=== PATIENT | male | born 1960 | race Caucasian/White ===

== ENCOUNTER 2018-12-15 10:08 | Outpatient (CLI) | payer BC ==
--- NOTE | 2018-12-15 10:32 | RAD ---
Lumbar spine: 3 views. Neutral flexion extension lateral views obtained. INDICATIONS: Low back pain. Comparison made lumbar films from [facility] to 09/12/2018. Severe degenerative changes. Loss of disc space at all levels. Anterior wedging with large bridging o steophytes. Facet hypertrophy. Evidence of central canal stenosis at multiple levels. Slight posterior listhesis at L3-4 does not appear to change with flexion and extension. IMPRESSION: Severe degenerative changes lumbar spine, stable from prior exam.
== END 2018-12-15 10:09 | disposition home or self-care (01) ==
LOC: TBSIIMAG 10:08
PROVIDERS: ATTEND Neurological Surgery
DX: M54.5 Low back pain (principal); M47.26 Other spondylosis with radiculopathy, lumbar region
CPT/HCPCS: 72100

== ENCOUNTER 2019-01-06 08:10 | Day surgery (SDC) | payer BC ==
[2019-01-05 14:24] VITALS: BMI 38.0
--- NOTE | 2019-01-06 01:28 | HP ---
This is Roz Alcantar PA-C dictating a report for Jourdan Curran MD. HISTORY OF PRESENT ILLNESS: This is a 58-year-old male, who reports to our office for evaluation of low back pain. He denies one side being worse than the other. He is having symptoms consistent with an L2 radiculopathy bilaterally and symptoms of neurogenic claudication. The patient states that he has had pain for years, however had previously seen in our office in 2010. At that time, he was not in a position of surgery yet. The patient denies physical therapy. He has had one injection with reasonable relief. This was many years ago. The patient takes Aleve for pain occasionally. The patient states that the longer he stands, he will need to lean forward just to relieve from pain. If he sits, the pain will get better. He gets numbness and tingling in both lower extremities at times. Most of his pain is located in the low back, hip and groin. REVIEW OF SYSTEMS: A 10-point review of systems has been completed and is negative other than stated in the above HPI. PAST MEDICAL HISTORY: Blood clots, hyperlipidemia, chronic pain, diabetes, hypertension, and kidney disease. PAST SURGICAL HISTORY: Carpal tunnel and cholecystectomy. FAMILY HISTORY: Father is , diagnosed with diabetes, hypertension, heart disease, and cancer. Mother is alive. SOCIAL HISTORY: The patient is a nonsmoker. Denies alcohol or other illicit drug use. He is sexually active. MEDICATIONS: 1. Lantus. 2. Metformin. 3. Glipizide. 4. Atorvastatin. 5. Losartan. 6. Hydrochlorothiazide. 7. Pantoprazole. 8. Berna. ALLERGIES: NO KNOWN DRUG ALLERGIES. PHYSICAL EXAMINATION: CONSTITUTION: Well-appearing, well nourished, alert. RESPIRATIONS: Normal work of breathing on room air. NEUROLOGIC: Awake and oriented x3. Speech is spontaneous and fluent. Normal fund of knowledge. Cranial nerves grossly intact. EXTREMITIES: Lower extremities 5/5 bilateral strength in hip flexion, knee flexion, knee extension, dorsiflexion, plantar flexion, EHL. No radiculopathy. Negative single leg raise bilaterally. Hip rotation normal bilaterally. Nontender to palpate lumbar spine. Deep tendon reflexes diminished bilaterally. Negative Babinski. No clonus. SENSORY: Decreased sensation in bilateral top of feet, diabetes, peripheral neuropathy. Gait and station, sit to stand is normal. Normal gait. IMAGING DATA: MRI lumbar spine degenerative disk disease. Multilevel herniated nucleus pulposus L1-L2 with severe stenosis. ASSESSMENT AND PLAN: Hip pain, lumbar degenerative disc, lumbar back pain, lumbar stenosis and neurogenic claudication. Dr. Curran has offered surgery and laminectomy. The patient states that he understands the risks of surgery and is willing to move forward. Job ID: [id number]
[2019-01-06 09:00] LABS: #Eosinphils 0.6 thou/uL (0.0-0.7); #Lymphocytes 2.2 thou/uL (1.20-3.40); #Monocytes 0.6 thou/uL (0.11-0.59); #Neutrophils 6.5 thou/uL (1.40-6.50); %Basophils 0.4 % (0.0-1.0); %Eosinophils 5.6 % (0.0-10.0); %Lymphocytes 22.4 % (21.0-51.0); %Monocytes 6.1 % (0.0-10.0); %Neutrophils 65.5 % (42.0-75.0); Hemoglobin 14.5 g/dL (14.0-18.0); Mean Corpuscular HGB CONC 33.3 g/dL (32.0-36.0); Mean Corpuscular Hemoglobin 29.7 pg (27.0-31.0); Mean Corpuscular Volume 89.3 fL (78.0-98.0); Platelet Count 214 thou/uL (130-400); RBC Distribution Width 11.3 % (11.5-14.5); Red Blood Cell (RBC) Count 4.86 mill/uL (4.70-6.10); White Blood Cell (WBC) Count 9.9 thou/uL (4.8-10.8)
[2019-01-06 09:09] LABS: PTT 25.2 SEC (22.9-36.1); Prothrombin Time 12.9 SEC (12.0-14.7)
[2019-01-06 09:31] LABS: Anion Gap 14 mmol/L (10-20); BUN (Urea Nitrogen) 14 mg/dL (8.4-25.7); Calc. Creatinine Clearance 145 mL/min (70-130); Calcium 9.8 mg/dL (7.8-10.44); Carbon Dioxide 24 mmol/L (22-29); Chloride 104 mmol/L (98-107); Estimated GFR-MDRD 77; Glucose 203 mg/dL (70-105); Sodium 138 mmol/L (136-145)
== END 2019-01-06 10:26 | disposition home or self-care (01) ==
LOC: SDC 08:10
PROVIDERS: ATTEND Neurological Surgery
DX: M48.062 Spinal stenosis, lumbar region with neurogenic claudication (principal); Z53.8 Procedure and treatment not carried out for other reasons
CPT/HCPCS: 80048; 85025; 85610; 85730; 93005; 93010; J0690

== ENCOUNTER 2019-01-07 06:34 | Day surgery (SDC) | payer BC ==
[2019-01-07] MEDS ORDERED: Bupivacaine HCl 0.5%/Epinephrine 1:200,000/PF 30 ml Vial ONE (07:46)
[2019-01-07] MEDS ORDERED: Thrombin 5000 UNITS/5 ML VIAL ONE (07:46)
[2019-01-07] MEDS ORDERED: Sodium Chloride 0.9% 10 ML ONE (07:46)
[2019-01-07] MEDS ORDERED: Fentanyl 100 MCG/2 ML VIAL ONE ×5 (07:57→11:19)
[2019-01-07] MEDS ORDERED: Insulin Regular 300 UNITS/3 ML VIAL ONE (08:57)
[2019-01-07] MEDS ORDERED: HYDROcodone/Acetaminophen 5/325 mg Tablet ONE (13:55)
[2019-01-07] MEDS ORDERED: Ketorolac Tromethamine 30 MG/ML VIAL ONE (14:27)
[2019-01-07] MEDS ORDERED: Metoclopramide HCl 10 MG/2 ML VIAL ONE (14:27)
[2019-01-07] MEDS ORDERED: Lidocaine 2% PF 5 ML VIAL ONE (14:27)
[2019-01-07] MEDS ORDERED: PROPOFOL 200 MG/20 ML VIAL ONE (14:27)
[2019-01-07] MEDS ORDERED: Glycopyrrolate 0.2 MG/ML 5 ML SYRINGE ONE (14:27)
[2019-01-07] MEDS ORDERED: Rocuronium Bromide 10 MG/ML (10ML VIAL) ONE (14:27)
[2019-01-07] MEDS ORDERED: Ondansetron PF 4 MG/2 ML Vial ONE (14:27)
[2019-01-07] MEDS ORDERED: ePHEDrine 50 MG/ML VIAL ONE (14:27)
[2019-01-07] MEDS ORDERED: PHENYLEPHRINE-NS 100 MCG/ML 10 ML SYRINGE ONE (14:27)
--- NOTE | 2019-01-07 14:52 | OP ---
DATE OF PROCEDURE: 01/07/2019 BUSINESS ANALYTICS SPECIALIST: Roz Alcantar PA-C. PREOPERATIVE INDICATION: Treat pain and prevent neurological deterioration. PREOPERATIVE DIAGNOSIS: Lumbar stenosis with neurogenic claudication and radiculopathic pain. POSTOPERATIVE DIAGNOSIS: Lumbar stenosis with neurogenic claudication and radiculopathic pain. OPERATIVE PROCEDURE: Decompressive laminectomy, medial facetectomy, and foraminotomy of L1-L2 and L2-L3. PREOPERATIVE MEDICATIONS: Ancef 2 g IV. DRAIN NUMBER: 0. DRAIN TYPE: None. DESCRIPTION OF PROCEDURE: The patient was brought to the operating room. General endotracheal anesthesia was induced. The patient was positioned prone on the operating table with his chest and hips supported by gel-filled chest rolls. A lateral fluoro radiograph was used to plan our incision. Hair was removed with electric clippers and thoracolumbar skin was sterilely prepped and draped. We opened the midline incision with a 10 blade knife. We controlled bleeding with bipolar and monopolar cautery. We used monopolar cautery to dissect through subcutaneous tissues to the thoracodorsal fascia. We incised the fascia in the midline and we reflected the paraspinal muscles off the spinous process and lamina of L1, L2, and L3. Self-retaining retractor was placed and a lateral fluoro radiograph confirmed the levels upon, which we were operating. We then used an Adson rongeur to remove the spinous processes of L1 and L2 and the superior portion of L3. Using a Kerrison rongeur, we fashioned the laminectomy down the midline. We widened our laminectomy defect. Due to a congenitally narrow canal, we could not widen our posterior laminectomy defect to get lateral to the dura, but we could undermine the lateral recesses with Kerrison rongeurs, removing osteophytes and thickened ligament, so that a Rome ball probe could pass through each lateral recess and out the foramen with their respective nerve roots. We checked for foraminal stenosis at L1, L2, and L3. The most stenotic foramen was the right L3 foramen, and with a foraminotomy Kerrison, we opened that up until ball probe could easily pass out of the spine. We then irrigated copiously with bacitracin irrigation. We tried to retract the thecal sac medially to visualize the calcified disk at L1-L2, but there was too much tension on the dura to make that safe. We could approach that disk if we were to able to perform a complete facetectomy that necessitate fusion and this was not part of the plan. The calcified disk has likely been in this shape for quite some time and is not mobile. Posterior decompression alone was the plan prior to the operation and not to be sufficient to decompress the neural elements. We then waxed the bone edges. We infused local anesthetic in the paraspinal muscles. We treated the wound with vancomycin powder due to diabetes. We closed the wound in anatomical layers. We applied a sterile dressing. This was a clean case, no contamination. Job ID: [id number]
== END 2019-01-07 14:45 | disposition home or self-care (01) ==
LOC: SDC 06:34
PROVIDERS: ATTEND Neurological Surgery
PROC: 01NB0ZZ Release Lumbar Nerve, Open Approach (ICD-10-PCS; principal; 2019-01-07)
DX: M48.062 Spinal stenosis, lumbar region with neurogenic claudication (principal); M51.36 Other intervertebral disc degeneration, lumbar region
CPT/HCPCS: 36416; 76000; J0131; J0670; J0690; J1815; J1885; J2001; J2405; J2704; J2765; J3010; J3370; J3490

== ENCOUNTER 2019-01-09 16:10 | Inpatient (IN) | payer BC ==
[2019-01-09] MEDS ORDERED: Dexamethasone 10 MG/ML VIAL ONE (18:25)
[2019-01-09] MEDS ORDERED: Morphine 4 MG/ML VIAL ONE (18:25)
[2019-01-09] MEDS ORDERED: HYDROcodone/Acetaminophen 5/325 mg Tablet PO PRN ×2 (21:27)
[2019-01-09] MEDS ORDERED: Dextrose 5% in Water 1,000 ML IV PRN (22:01)
[2019-01-09] MEDS ORDERED: Dextrose 50% Abboject 50 ML SYRINGE SLOW IVP PRN (22:01)
[2019-01-09 22:33] LABS: #Eosinphils 0.1 thou/uL (0.0-0.7); #Lymphocytes 0.8 thou/uL (1.20-3.40); #Monocytes 0.5 thou/uL (0.11-0.59); %Basophils 0.1 % (0.0-1.0); %Eosinophils 0.8 % (0.0-10.0); %Lymphocytes 5.5 % (21.0-51.0); %Monocytes 3.3 % (0.0-10.0); %Neutrophils 90.3 % (42.0-75.0); Hemoglobin 14.7 g/dL (14.0-18.0); Mean Corpuscular HGB CONC 33.3 g/dL (32.0-36.0); Mean Corpuscular Volume 90.3 fL (78.0-98.0); Mean Platelet Volume 8.5 fL (7.4-10.4); Platelet Count 201 thou/uL (130-400); RBC Distribution Width 11.3 % (11.5-14.5); Red Blood Cell (RBC) Count 4.89 mill/uL (4.70-6.10); White Blood Cell (WBC) Count 14.4 thou/uL (4.8-10.8)
[2019-01-09 22:57] LABS: ALT (SGPT) 18 U/L (8-55); AST (SGOT) 23 U/L (5-34); Albumin 3.8 g/dL (3.5-5.0); Alkaline Phosphatase 74 U/L (40-150); Anion Gap 16 mmol/L (10-20); BUN (Urea Nitrogen) 9 mg/dL (8.4-25.7); Bilirubin, Total 0.8 mg/dL (0.2-1.2); Calc. Creatinine Clearance 0 mL/min (70-130); Calcium 9.5 mg/dL (7.8-10.44); Carbon Dioxide 25 mmol/L (22-29); Chloride 99 mmol/L (98-107); Estimated GFR-MDRD Greater than 90; Globulin 3.2 g/dL (2.4-3.5); Glucose 182 mg/dL (70-105); Potassium 4.1 mmol/L (3.5-5.1); Sodium 136 mmol/L (136-145)
[2019-01-09] MEDS: Morphine 4 MG/ML VIAL SLOW IVP PRN (23:38)
[2019-01-09] MEDS: Mag-Al 1200 mg/1200 mg/30 ML UDCUP PO PRN (23:48)
--- NOTE | 2019-01-10 02:13 | HP ---
PRIMARY CARE PHYSICIAN: Dr. Pyaan, located in [place]. CODE STATUS: Full code. CHIEF COMPLAINT: Back pain with radiculopathy. HISTORY OF PRESENT ILLNESS: The patient is a 58-year-old male with a past medical history of degenerative disk disease, status postop day #2 for a lumbar laminectomy performed by Dr. Curran. The patient's spouse reports that Wednesday he was scheduled lumbar laminectomy and was discharged same day, sent home with Tylenol No.3 with good pain control. The next afternoon, the patient reports increasing back pain with radiculopathy going down bilateral legs. It is exacerbated with any movement such as sitting and relieve by laying on his side. The patient reports that the pain became so intense that he would even go to the bathroom yesterday evening, but he did report that he voided this morning. The patient denies any saddle anesthesia or incontinence. The patient came to the ED for intractable back pain. In the ER, Neurosurgery was consulted and they spoke with ELDON Pradhan, for Dr. Nelson, who did not recommend imaging, did recommend dexamethasone 10 mg and to call Dr. Curran's PA, who did not return their call, per Dr. Arteaga in the ED. ED recommended consulting Dr. Curran in the morning. PAST MEDICAL HISTORY: 1. Degenerative disk disease. 2. Diabetes 2. 3. Hypertension. 4. Acid reflux. 5. Hyperlipidemia. 6. DVT. PAST SURGICAL HISTORY: Significant for; 1. Gallbladder cholecystectomy. 2. Carpal tunnel surgery. 3. Laminectomy. FAMILY HISTORY: Family history is noncontributory. SOCIAL HISTORY: The patient is for 38 years. He denies any tobacco use. He drinks alcohol occasionally and denies any illicit drug use. PSYCH HISTORY: The patient denies any psychiatric illnesses. ALLERGIES: THE PATIENT REPORTS NO KNOWN DRUG ALLERGIES. HOME MEDICATIONS: 1. Atorvastatin 20 mg p.o. daily at bedtime. 2. Hydrochlorothiazide 12.5 one p.o. q.a.m. 3. Metformin 500 mg one p.o. b.i.d. 4. Pantoprazole 40 mg one p.o. daily. 5. Glipizide 5 mg one p.o. daily. 6. Tizanidine 4 mg one p.o. q.8 hours p.r.n. muscle spasms and back pain. 7. Tylenol with Codeine No. 3, strength 300 mg/30 mg 1 to 2 tablets p.o. q.6 p.r.n. pain. REVIEW OF SYSTEMS: The patient reports back pain with radiculopathy. All other systems reviewed and were negative unless stated in the HPI. PHYSICAL EXAMINATION: VITAL SIGNS: Temperature 98.3 oral, blood pressure 129/108, pulse 94, respirations 18, pain is 2/10, and patient is 96% on room air. HEENT: Head is atraumatic, normocephalic. Eyes; pupils are equal, round, and reactive to light. Extraocular muscles intact. Sclerae white and nonicteric. ENT; tympanic membranes normal. Nares patent. Oropharynx clear. Moist mucous membranes. Uvula midline. NECK: Supple. Trachea midline. No cervical lymphadenopathy. RESPIRATORY: Good inspiratory effort. Clear to auscultation. No rhonchi, rales, or wheezing. CARDIOVASCULAR: Regular rate and rhythm. No murmurs, rubs, or gallops. GI: Abdomen is soft and nontender. No hepatosplenomegaly. EXTREMITIES: Bilateral upper extremities; normal range of motion. No edema. No cyanosis. No clubbing. Cap refill is brisk. Palpable radial pulses. Bilateral lower extremities; 2+ pitting edema, bilateral legs. Palpable pedal pulses. No clubbing. No cyanosis. Brisk cap refill. NEUROLOGIC: The patient is alert and oriented to person, place, and time. Moves all extremities well. No focal neuro deficits. SKIN: The patient has a new Tegaderm with pad placed to the lumbar spine status post day #2 of laminectomy. No drainage noted. No erythema noted. Nontender to palpation. LABORATORY DATA: Hematology; WBC 14.4, hemoglobin 14.7, hematocrit 44.1, and platelet count 201. Chemistry is pending. ASSESSMENT AND PLAN: 1. Intractable back pain. The patient is postop day #2, status post laminectomy performed by Dr. Curran. Pain meds will be ordered PRN. We will also order a PT evaluation as patient states pain is unbearable with movement. Dr. Curran will be consulted. Case Management has been consulted for possible Rehab screening. 2. Diabetes Type II:. We will hold patient's metformin and glipizide for now. We will restart the patient's Lantus 50 units at bedtime. We will start sliding scale and we will check blood sugars a.c. and at bedtime. 3. Urinary retention: straight cath in ED with 1200ml outpt. Patient is refusing to move due to pain and states he cannot urinate lying down. Can be discontinued once ambulatory. 4. Hypertension. We will restart patient's home med. 5. Acid reflux. We will order Pepcid b.i.d. 6. Hyperlipidemia. We will restart the patient's home medications. 7. Gastrointestinal and deep venous thrombosis prophylaxis. Hospital course is dependent on clinical findings. Job ID: [id number] MTDD
[2019-01-10] MEDS: Morphine 4 MG/ML VIAL SLOW IVP PRN (03:25)
[2019-01-10 03:37] VITALS: BMI 37.5
[2019-01-10 04:39] LABS: #Lymphocytes 0.7 thou/uL (1.20-3.40); #Monocytes 0.6 thou/uL (0.11-0.59); #Neutrophils 11.4 thou/uL (1.40-6.50); %Basophils 0.1 % (0.0-1.0); %Eosinophils 0.1 % (0.0-10.0); %Lymphocytes 5.7 % (21.0-51.0); %Monocytes 4.8 % (0.0-10.0); %Neutrophils 89.3 % (42.0-75.0); Hemoglobin 13.3 g/dL (14.0-18.0); Mean Corpuscular Hemoglobin 29.8 pg (27.0-31.0); Mean Corpuscular Volume 90.4 fL (78.0-98.0); Mean Platelet Volume 8.1 fL (7.4-10.4); Platelet Count 200 thou/uL (130-400); RBC Distribution Width 11.3 % (11.5-14.5); Red Blood Cell (RBC) Count 4.47 mill/uL (4.70-6.10); White Blood Cell (WBC) Count 12.8 thou/uL (4.8-10.8)
[2019-01-10 04:57] LABS: ALT (SGPT) 17 U/L (8-55); AST (SGOT) 20 U/L (5-34); Albumin 3.5 g/dL (3.5-5.0); Alkaline Phosphatase 68 U/L (40-150); Anion Gap 17 mmol/L (10-20); BUN (Urea Nitrogen) 12 mg/dL (8.4-25.7); Bilirubin, Total 0.8 mg/dL (0.2-1.2); Calc. Creatinine Clearance 165 mL/min (70-130); Calcium 9.3 mg/dL (7.8-10.44); Carbon Dioxide 25 mmol/L (22-29); Chloride 99 mmol/L (98-107); Estimated GFR-MDRD 90; Glucose 221 mg/dL (70-105); Potassium 4.3 mmol/L (3.5-5.1); Protein, Total 6.5 g/dL (6.0-8.3); Sodium 137 mmol/L (136-145)
[2019-01-10] MEDS: HumaLOG 300 UNITS/3 ML VIAL SC PRN ×4 (07:16→22:07)
--- NOTE | 2019-01-10 09:12 | CT ---
Exam: CT LUMBAR SPINE WITHOUT CONTRAST: HISTORY: Radiculopathy in the lumbar spine. Low back pain. Recent surgery. COMPARISON: None. FINDINGS: Five lumbar type vertebral bodies. Lumbar spine vertebral body height is maintained. No fracture. End plate sclerosis starting at L2-L3 and involving disc spaces down to L4-L5 likely due to multilevel type III Modic change. Vacuum disc phenomenon from L1-L2 through L5-S1. Straightening of normal cervi alena lordosis. No evidence of spondylolisthesis or spondylolysis. Laminectomy defect at L1 and L2. Partial laminectomy defect at L3.. Symmetric attenuation of the visualized solid organs and paraspinal muscles. No retroperitoneal mass, lymphadenopathy, or hematoma. Limited evaluation of the central spinal canal and neural foramina due to technique. T12-L1: Generalized disc bulge with mild central canal stenosis. Bilaterally, neural foramina are pat ent. L1-L2: Posterior laminectomy defect. Generalized disc bulge with at least mild central canal stenosis . Abnormal soft tissue attenuation at the laminectomy defect site is noted. No evidence of high-grade central canal stenosis or high-grade neural foraminal narrowing. There are small pockets o f soft tissue air in the midline subcutaneous fat, likely postsurgical. L2-L3: Vacuum disc phenomenon. Laminectomy defect. Broad-based disc bulge at least mild central canal stenosis. Abnormal attenuation at the laminectomy defect site, incompletely evaluated. Moderate right and mild to moderate left foraminal narrowing. L3-L4: Severe loss of disc space height. Broad-based disc bulge, ligament flavum thickening, and face t hypertrophy result in mild central canal stenosis. Partial laminectomy defect is identified. Abnormal hypoattenuation at the postoperative site with two small foci of air, likely postsurgical. M oderate to severe right and moderate left foraminal narrowing. Right greater than left facet hypertrophy. L4-L5: Severe loss of disc space height. Generalized disc bulge, ligament flavum thickening, and face t hypertrophy result in mild to moderate central canal stenosis. Moderate right and moderate to severe left foraminal narrowing. L5-S1: Central/left subarticular disc protrusion. No significant central canal stenosis. Moderate rig ht and moderate to severe left foraminal narrowing. Left foraminal narrowing is due to disc material as well as posterior element hypertrophy. IMPRESSION: 1. Abnormal hypoattenuation at the laminectomy defect sites which may represent postsurgical change. If there is concern for postoperative abscess, pre and postcontrast MRI is recommended. No evidence of high-grade central canal stenosis throughout the lumbar spine. 2. Extensive multilevel significant neural foraminal narrowing as described above. Transcribed Date/Time: 01/10/2019 9:42 AM
[2019-01-10] MEDS: Senokot S 8.6-50 MG TAB PO SCH ×2 (09:13→20:26)
[2019-01-10] MEDS: Famotidine 20 MG TAB PO SCH ×2 (09:13→20:25)
[2019-01-10] MEDS: tiZANidine HCl 4 MG TAB PO SCH ×3 (09:13→20:25)
[2019-01-10] MEDS ORDERED: Acetaminophen/Codeine 30-300mg Tablet PO PRN (10:03)
[2019-01-10] MEDS ORDERED: Acetaminophen 325 MG TAB PO PRN (10:03)
[2019-01-10] MEDS ORDERED: traMADol HCl 50 MG TAB PO PRN (10:04)
--- NOTE | 2019-01-10 11:45 | PRG ---
DATE OF SERVICE: 01/10/2019 I personally interviewed and examined the patient, reviewed documentation of Roz Alcantar PA-C, dated 01/10/2019. Briefly, Galo David is a patient of ours, who underwent a decompressive laminectomy with medial facetectomy and foraminotomy at L1-L2 and L2-L3 on last Wednesday. This is his third postoperative day today and his pain was increasing to the point where he was having difficulty walking or getting out of bed at all. He came to the emergency department for pain control. I am seeing him in his hospital room this morning. He was resting in bed. He is pain free. He has good strength in the iliopsoas and the quadriceps and hamstrings and distally as well. There is no area of dermatomal sensory loss. Pain seems to be deep in the right thigh, not past the knee. It is deep right thigh pain and does not follow particular dermatome. He is tender in the greater trochanteric bursa. I reassured Mr. David that the third postoperative day was the most difficult with increased swelling and perhaps some inflammation around the dissected nerves. However, his pain does not seem dermatomal to me. It could be a bit of bursitis or something worse. I will have Dr. Vanessa visit with him, or Dr. Vanessa or Dr. Briseno or even potentially Dr. Groves visit with him for a greater trochanteric bursa injection. Physical Therapy working with him for iliotibial band stretching would be beneficial and I think he needs aggressive mobilization. If the bursa injection does not help at all, may look for any pathology in the pelvis or upper thigh. I will get an ultrasound of the lower extremities. The surgical intervention on Wednesday was unremarkable and without incident. We will continue to follow along. Job ID: [id number]
[2019-01-10] MEDS: Dexamethasone 4 MG TAB PO SCH ×3 (13:13→20:24)
--- NOTE | 2019-01-10 13:19 | ULT ---
ULTRASOUND WITH DOPPLER DUPLEX VENOUS LOWER EXTREMITIES BILATERAL: 01/10/19 HISTORY: 58-year-old male with bilateral lower extremity pain. TECHNIQUE: Color flow Doppler, spectral waveform analysis of pulsed Doppler, and carlos-scale imaging with denise gigi and augmentation, were used to evaluate the bilateral common femoral, femoral, popliteal, nurse transitional ior tibial, and superficial femoral, veins; and the proximal portions of the profunda femoral and gre ater saphenous, veins. FINDINGS: There is normal compressibility, demonstration of blood flow by color Doppler and pulsed Doppler, and response to augmentation, in all interrogated veins. IMPRESSION: Negative. No deep vein thrombosis in the bilateral lower extremities. jn[] POS: TPC
[2019-01-10] MEDS: Morphine 2 MG/ML SYRINGE SLOW IVP PRN ×2 (13:20→20:22)
[2019-01-10] MEDS: Mag-Al 1200 mg/1200 mg/30 ML UDCUP PO PRN ×2 (13:20→18:19)
--- NOTE | 2019-01-10 14:42 | CON ---
DATE OF CONSULTATION: HISTORY OF PRESENT ILLNESS: Mr. David is 58-year-old male, who had a laminectomy on 01/07/2019. He reports to the emergency department last night for worsening low back and hip pain. He states that following surgery on Wednesday, he was discharged and felt pretty good, and then he was able to get up and do activities until about Wednesday afternoon, when he started having worsening low back pain. He states that from Wednesday afternoon until yesterday evening, pain got worse until it was so painful and he struggle to get up to use the restroom and at that is why he has had an ambulance called. He has been taking Tylenol 3 and tizanidine for pain and muscle spasms. He states that when he lays still on his side, he is more or less pain-free. If he tries to sit up, he has pain in his back and his hips. He states that if he moves too much, it will "anything down his legs." The right side is significantly worse than the left and approximately 90% of his pain in his low back and about 10% of it goes down into his hips and thighs. When I see Mr. David this morning in his hospital room, he was resting comfortably, lying on his left side. He is moving his upper extremities well without any pain. His lower extremities , he is hesitant to move; however, he has full strength. Single leg raise is painful in the low back with a little bit that radiates on the right side. Hip rotation is not painful bilaterally. Without manipulating, the patient has 1/10 pain. At its worst, this morning it was 4/10. He states that he is very hesitant to move because it was quite painful yesterday and he was scared it will get that bad again. The patient denies any numbness or tingling other than in his toes, the patient has diabetic neuropathy. He is quit tender to palpate over the right GTB. REVIEW OF SYSTEMS: A 10-point review of systems has been completed and is negative other than stated in the above HPI. PAST MEDICAL HISTORY: Diabetes, type 2; hypertension; chronic back pain. PAST SURGICAL HISTORY: Carpal tunnel release, bilateral; laminectomy on 2018; and cholecystectomy. SOCIAL HISTORY: The patient denies alcohol use. Denies drug use. He has no smoking history. Lives with his . ALLERGIES: NO KNOWN DRUG ALLERGIES. CURRENT MEDICATIONS: Atorvastatin, hydrochlorothiazide, metformin, pantoprazole , glipizide, tizanidine, Tylenol 3. PHYSICAL EXAMINATION: VITAL SIGNS: Temperature 98.1, heart rate 95, respirations 16, O2 saturation 92 % on room air, and blood pressure 135/74. CONSTITUTIONAL: Well-appearing, well-nourished, obese, afebrile, normotensive, appears nontoxic and is not in any visible distress. HEENT. Head is normocephalic and atraumatic. Pupils are equal, round, and reactive to light. Extraocular movements are intact. Hearing is intact. Moist membranes. RESPIRATIONS: Normal work of breathing on room air. Symmetric chest rise. CARDIAC: Regular rate and rhythm. EXTREMITIES: Upper extremities; full range of motion, normal strength. Lower extremities, normal sensation. The patient states back pain with movement of lower extremities, worse on the right than the left. Strength is 5/5 in hip flexion, hip extension, knee flexion, knee extension, dorsiflexion, plantar flexion bilaterally. No change in sensation. Positive single leg raise on the right. Hip rotation normal bilaterally. Tenderness over R GTB NEUROLOGIC: The patient is alert and oriented x3. Speech is spontaneous and fluent. Normal fund of knowledge. Cranial nerves are grossly intact. There are no sensory or motor deficits noted bilaterally. There is no bowel or bladder dysfunction. No saddle anesthesia. ASSESSMENT AND PLAN: Mr. David is 58-year-old gentleman, who is known to our office. He had a laminectomy in 01/07/2019, following which he was discharged home. He had a good 24 hours or so following surgery. However, on Wednesday afternoon, he started to have worsening back pain that was uncontrolled with his pain medications. He got to the point where he was unable to get up to use the restroom, so he called the ambulance and the Hospitalist Department admitted him overnight for intractable back pain. This morning, he is feeling better than he did yesterday. He is still moving very limited in his bed. However, his lower extremity strength is normal. The patient is hesitant to roll over in bed or sit up. We will get a CT of the lumbar spine without contrast to assess for any compression on the nerves. The Surgery went well without incident. Pending imaging, We will make further plan. Until then pain control, mobilization, physical therapy. Any questions please contact Neurosurgery. Job ID: [id number] [facility]ENTERDeepti
--- NOTE | 2019-01-10 16:07 | PDOC.PN ---
- Subjective Encounter Start Date: 01/10/19 Encounter Start Time: 16:04 Subjective: Admitted due to acute worsening of back pain after lumbar laminectomy. -: Feeling better but still unable to ambulate. -: Had dang placement for urinary retention. - Objective Resuscitation Status - Order Detail: 01/09/19 21:49 Resuscitation Status Routine Co-Sign Provider: Resuscitation Status: FULL: Full Resuscitation Discussed with: patient Additional comments: Janice is surrogate decision maker [phone] Vital Signs & Weight: Vital Signs (12 hours) Temp Pulse Resp BP Pulse Ox 01/10/19 11:00 98.1 F 81 16 129/80 92 L 01/10/19 08:25 16 L 01/10/19 07:25 98.1 F 95 16 135/74 92 L Weight Weight 277 lb 1.937 oz I&O: 01/09/19 01/10/19 01/11/19 06:59 06:59 06:59 Intake Total 2 810 Output Total 2000 Balance 2 -1190 Result Diagrams: 01/10/19 04:21 01/10/19 04:21 Additional Labs: Accuchecks 01/10/19 01/10/19 01/10/19 15:43 10:59 05:58 POC Glucose 186 H 178 H 229 H Phys Exam - Physical Examination Constitutional: NAD obese HEENT: PERRLA, moist MMs Neck: no JVD, supple Respiratory: no wheezing, no rales, no rhonchi, clear to auscultation bilateral Cardiovascular: RRR, no significant murmur Gastrointestinal: soft, non-tender, no distention, positive bowel sounds obese Musculoskeletal: no edema Neurological: non-focal, moves all 4 limbs Psychiatric: A&O x 3 Dx/Plan (1) HTN (hypertension) Code(s): I10 - ESSENTIAL (PRIMARY) HYPERTENSION Status: Acute (2) Diabetes mellitus Code(s): E11.9 - TYPE 2 DIABETES MELLITUS WITHOUT COMPLICATIONS Status: Acute (3) Obesity (BMI 30-39.9) Code(s): E66.9 - OBESITY, UNSPECIFIED Status: Acute (4) GERD (gastroesophageal reflux disease) Code(s): K21.9 - GASTRO-ESOPHAGEAL REFLUX DISEASE WITHOUT ESOPHAGITIS Status: Acute (5) Lumbar spondylolysis Code(s): M43.06 - SPONDYLOLYSIS, LUMBAR REGION Status: Acute (6) Back pain Code(s): M54.9 - DORSALGIA, UNSPECIFIED Status: Acute (7) Acute urinary retention Code(s): R33.8 - OTHER RETENTION OF URINE Status: Acute - Plan Continue steroid and analgesic as per Neurosurgery -: Continue antihypertensives and hypoglycemic agaents. -: Keep dang for now. Will attempt voiding trial tomorrow -: PT/OT eval nad treat. * .
[2019-01-10] MEDS: Acetaminophen/Codeine 30-300mg Tablet PO PRN (20:24)
[2019-01-11] MEDS: Acetaminophen/Codeine 30-300mg Tablet PO PRN ×3 (03:37→17:16)
[2019-01-11] MEDS: Morphine 2 MG/ML SYRINGE SLOW IVP PRN ×2 (03:37→12:05)
[2019-01-11] MEDS: Mag-Al 1200 mg/1200 mg/30 ML UDCUP PO PRN (03:37)
[2019-01-11] MEDS: HumaLOG 300 UNITS/3 ML VIAL SC PRN ×4 (07:11→20:34)
[2019-01-11] MEDS: Famotidine 20 MG TAB PO SCH ×2 (09:40→20:26)
[2019-01-11] MEDS: tiZANidine HCl 4 MG TAB PO SCH ×3 (09:40→20:26)
[2019-01-11] MEDS: Senokot S 8.6-50 MG TAB PO SCH ×2 (09:40→20:27)
[2019-01-11] MEDS: Dexamethasone 4 MG TAB PO SCH ×4 (09:42→20:26)
--- NOTE | 2019-01-11 09:47 | PRG ---
DATE OF SERVICE: 01/11/2019 Galo David was seen in his hospital room this morning. Yesterday, he was continued on his 2-week Decadron taper. We began some mobilization, he feels better this morning. In fact, he got out of the bed and stood up. Only after standing for a few minutes that he gets some pain. There is extreme tenderness of the iliotibial band fci between the greater trochanter of the femur and the knee, and there was some pain in the posteroinferior gluteal area radiating to the posterior upper thigh, but not to the knee. I did not find any neurological deficits on my exam. Mr. David is improving with steroids, but his gastroesophageal reflux and his blood sugars have both gotten worse. We will get Protonix on board and make sure his home diabetes medications are being used. In the meantime, I will ask Dr. Vanessa to see him to see if he has any tips or injections that might alleviate his discomfort and allow him to leave the hospital. I think aggressive mobilization is the brito, and we will try that today. Job ID: [id number] MTDD
--- NOTE | 2019-01-11 11:20 | PDOC.PN ---
- Subjective Encounter Start Date: 01/11/19 Encounter Start Time: 11:17 Subjective: backpain persists - Objective Resuscitation Status - Order Detail: 01/09/19 21:49 Resuscitation Status Routine Co-Sign Provider: Resuscitation Status: FULL: Full Resuscitation Discussed with: patient Additional comments: Janice is surrogate decision maker [phone] MAR Reviewed: Yes Vital Signs & Weight: Vital Signs (12 hours) Temp Pulse Resp BP BP Pulse Ox 01/11/19 08:00 97.9 F 90 18 162/99 H 95 01/11/19 04:43 97.5 F L 91 20 146/91 H 95 01/11/19 00:42 98.2 F 79 20 128/71 94 L Weight Weight 277 lb 1.937 oz I&O: 01/10/19 01/11/19 01/12/19 06:59 06:59 06:59 Intake Total 2 2009 Output Total 3450 Balance 2 -1440 Result Diagrams: 01/10/19 04:21 01/10/19 04:21 Additional Labs: Accuchecks 01/11/19 01/10/19 01/10/19 05:48 21:11 15:43 POC Glucose 225 H 264 H 186 H 01/10/19 10:59 POC Glucose 178 H Phys Exam - Physical Examination Neck: no JVD Respiratory: clear to auscultation bilateral Cardiovascular: RRR, no significant murmur Gastrointestinal: soft, positive bowel sounds Musculoskeletal: no edema Dx/Plan (1) Acute urinary retention Code(s): R33.8 - OTHER RETENTION OF URINE Status: Acute (2) Back pain Code(s): M54.9 - DORSALGIA, UNSPECIFIED Status: Acute Qualifiers: Back pain location: back pain in unspecified location Chronicity: acute Back pain laterality: bilateral Qualified Code(s): M54.9 - Dorsalgia, unspecified (3) Diabetes mellitus Code(s): E11.9 - TYPE 2 DIABETES MELLITUS WITHOUT COMPLICATIONS Status: Acute Qualifiers: Diabetes mellitus type: type 2 Diabetes mellitus termination clerk insulin use: with termination clerk use Diabetes mellitus complication status: without complication Qualified Code(s): E11.9 - Type 2 diabetes mellitus without complications; Z79.4 - [facility] (current) use of insulin (4) GERD (gastroesophageal reflux disease) Code(s): K21.9 - GASTRO-ESOPHAGEAL REFLUX DISEASE WITHOUT ESOPHAGITIS Status: Acute (5) HTN (hypertension) Code(s): I10 - ESSENTIAL (PRIMARY) HYPERTENSION Status: Chronic Qualifiers: Hypertension type: essential hypertension Qualified Code(s): I10 - Essential (primary) hypertension - Plan back pain per NS -: accu/ss -: resume home meds * .
[2019-01-11] MEDS: metFORMIN 500 MG TAB PO SCH (17:16)
[2019-01-11] MEDS: traMADol HCl 50 MG TAB PO PRN (20:27)
[2019-01-11] MEDS: Insulin Glargine 50 UNITS in Pre-Filled Syringe 1 EACH SC SCH (20:29)
[2019-01-12] MEDS: Acetaminophen/Codeine 30-300mg Tablet PO PRN ×3 (03:30→13:31)
[2019-01-12] MEDS: traMADol HCl 50 MG TAB PO PRN ×3 (05:32→17:17)
[2019-01-12] MEDS: HumaLOG 300 UNITS/3 ML VIAL SC PRN ×3 (05:37→15:14)
[2019-01-12] MEDS: Losartan 25 MG TAB PO SCH (08:29)
[2019-01-12] MEDS: tiZANidine HCl 4 MG TAB PO SCH ×3 (08:30→20:17)
[2019-01-12] MEDS: Famotidine 20 MG TAB PO SCH ×2 (08:30→20:16)
[2019-01-12] MEDS: Hydrochlorothiazide 25 MG TAB PO SCH (08:30)
[2019-01-12] MEDS: metFORMIN 500 MG TAB PO SCH ×2 (08:30→17:17)
[2019-01-12] MEDS: Loratadine 10 MG TAB PO SCH (08:30)
[2019-01-12] MEDS: Atorvastatin Calcium 20 MG TAB PO SCH (08:30)
[2019-01-12] MEDS: Senokot S 8.6-50 MG TAB PO SCH ×2 (08:31→20:23)
[2019-01-12] MEDS: Gabapentin 300 MG CAP PO SCH ×3 (08:31→20:17)
[2019-01-12] MEDS: Dexamethasone 4 MG TAB PO SCH ×3 (08:31→20:16)
[2019-01-12] MEDS ORDERED: HumaLOG 300 UNITS/3 ML VIAL SC PRN (11:21)
[2019-01-12] MEDS ORDERED: Dextrose 50% Abboject 50 ML SYRINGE SLOW IVP PRN (11:21)
[2019-01-12] MEDS ORDERED: Dextrose 5% in Water 1,000 ML IV PRN (11:21)
--- NOTE | 2019-01-12 11:29 | PDOC.PN ---
- Subjective Encounter Start Date: 01/12/19 Encounter Start Time: 11:27 Subjective: still has severe pain with motion of R leg.hips - Objective Resuscitation Status - Order Detail: 01/09/19 21:49 Resuscitation Status Routine Co-Sign Provider: Resuscitation Status: FULL: Full Resuscitation Discussed with: patient Additional comments: Janice is surrogate decision maker [phone] MAR Reviewed: Yes Vital Signs & Weight: Vital Signs (12 hours) Temp Pulse Resp BP Pulse Ox 01/12/19 11:00 97.5 F L 60 12 137/68 97 01/12/19 07:15 97.9 F 63 16 155/79 H 94 L 01/12/19 05:07 97.6 F 90 20 133/67 97 01/12/19 00:44 97.8 F 80 20 138/84 95 Weight Weight 277 lb 1.937 oz I&O: 01/11/19 01/12/19 01/13/19 06:59 06:59 06:59 Intake Total 2009 1959 Output Total 0 Balance -1440 1960 Result Diagrams: 01/10/19 04:21 01/10/19 04:21 Additional Labs: Accuchecks 01/12/19 01/11/19 01/11/19 05:35 20:31 15:40 POC Glucose 354 H 288 H 307 H 01/11/19 11:25 POC Glucose 264 H Phys Exam - Physical Examination Neck: no JVD Respiratory: clear to auscultation bilateral Cardiovascular: RRR, no significant murmur Gastrointestinal: soft, positive bowel sounds Musculoskeletal: no edema Dx/Plan (1) Acute urinary retention Code(s): R33.8 - OTHER RETENTION OF URINE Status: Acute (2) Back pain Code(s): M54.9 - DORSALGIA, UNSPECIFIED Status: Acute Qualifiers: Back pain location: back pain in unspecified location Chronicity: acute Back pain laterality: bilateral Qualified Code(s): M54.9 - Dorsalgia, unspecified (3) Diabetes mellitus Code(s): E11.9 - TYPE 2 DIABETES MELLITUS WITHOUT COMPLICATIONS Status: Acute Qualifiers: Diabetes mellitus type: type 2 Diabetes mellitus [facility] insulin use: with terminal gauger supervisor use Diabetes mellitus complication status: without complication Qualified Code(s): E11.9 - Type 2 diabetes mellitus without complications; Z79.4 - group home (current) use of insulin (4) GERD (gastroesophageal reflux disease) Code(s): K21.9 - GASTRO-ESOPHAGEAL REFLUX DISEASE WITHOUT ESOPHAGITIS Status: Acute Qualifiers: Esophagitis presence: esophagitis presence not specified Qualified Code(s) : K21.9 - Gastro-esophageal reflux disease without esophagitis (5) HTN (hypertension) Code(s): I10 - ESSENTIAL (PRIMARY) HYPERTENSION Status: Chronic Qualifiers: Hypertension type: essential hypertension Qualified Code(s): I10 - Essential (primary) hypertension - Plan back pain management per NS -: glucose elevated due to glucocorticoids, changed SS to moderate -: GERD ok on PPI * .
--- NOTE | 2019-01-12 12:06 | MRI ---
Contrast-enhanced images of chest, abdomen and pelvis. Miley history: Patient with breast cancer. CT CHEST: A right jugular Mediport catheter is in place. No definite evidence of mediastinal, axillary or hilar lymphadenopathy seen. The lung parenchyma is unremarkable with no evidence of masses or lesions. CT abdomen and pelvis: The osseous structures are unremarkable except for disc space height loss and changes of spondylosis at L5-S1. The liver, spleen, gallbladder, adrenal glands and kidneys are unremarkable. No dilated loops of small bowel seen. A large amount of stool seen in the colon. No evidence of periaortic lymphadenopathy seen. No evidence of ascites seen. The uterus is somewhat heterogeneous. A small amount of free pelvic fluid seen. IMPRESSION: No evidence of metastatic disease seen.
--- NOTE | 2019-01-12 18:04 | PRG ---
DATE OF SERVICE: 01/12/2019 I saw Mr. David this morning in his hospital room. He is resting comfortably. He states that he had an injection with Dr. Vanessa yesterday in the hip, which made the hip feel a lot better. However, he states that he has pain that radiates posteriorly from his hip down to his calf. He states that he is frustrated with his pain and states that he has worked with physical therapy. However, he has not gotten out of bed with them. He states he is able to make it to the restroom without significant pain. He states that his pain this morning with movement is 5/10. Obtained MRI of the lumbar spine which shows postsurgical changes L1 through L3. There is no significant change in the other areas of the spine to prior imaging. It is unlikely that there is new compression of the nerve roots and the areas that were operated on last week are decompressed well. Our recommendations for Mr. David are to start the gabapentin. Continue pain control with muscle relaxers. Continue the course of steroids to decrease any inflammation and to aggressively ambulate the patient. Once the patient is safe for daily activities, he can be discharged home. There are no neurosurgical interventions that need to be addressed at this time. Job ID: [id number]
[2019-01-12] MEDS: Insulin Glargine 50 UNITS in Pre-Filled Syringe 1 EACH SC SCH (21:17)
[2019-01-13] MEDS: Acetaminophen/Codeine 30-300mg Tablet PO PRN ×2 (04:48→22:49)
[2019-01-13] MEDS: traMADol HCl 50 MG TAB PO PRN (06:07)
[2019-01-13] MEDS: HumaLOG 300 UNITS/3 ML VIAL SC PRN (06:12)
--- NOTE | 2019-01-13 07:39 | PRG ---
DATE OF SERVICE: 01/13/2019 I saw Mr. David in his hospital room this morning. The past three days have been better than when he came back into the hospital, but he still has some significant posterior right thigh pain, especially when he stands and straightens out. Putting weight on the right leg also exacerbates it. A greater trochanteric bursa injection the other day got rid of some iliotibial band pain, but the posterior thigh pain remains there. It is limiting to him. Yesterday an MRI scan was done, we have the results to discuss today. I went over the results with Mr. David. There is a postop hematoma, as is often the case. However, his hematoma is causing compression at the level of the conus and the upper lumbar nerve roots. I believe the hematoma is responsible for the onset of symptoms 2-3 days after his operation. He had a great first two days after surgery and then the pain started on or about the third day. I believe evacuation of the hematoma would speed his recovery and prevent him from having any more conus symptoms. INFORMED CONSENT: I discussed the indications, risks, benefits, and alternatives to surgery. The risks I discussed included, but were not limited to, bleeding, infection, CSF leak, nerve damage, paralysis, incontinence, wheelchair dependence, major blood vessel injury, cardiopulmonary complications of anesthesia and . He understands all the risks and wants to proceed. We will have him n.p.o. and put him on the schedule for surgery today to evacuate the hematoma and reclose the wound. Job ID: [id number] MTDD
[2019-01-13] MEDS: metFORMIN 500 MG TAB PO SCH ×2 (10:02→19:16)
[2019-01-13] MEDS: Atorvastatin Calcium 20 MG TAB PO SCH (10:04)
[2019-01-13] MEDS: Dexamethasone 4 MG TAB PO SCH ×3 (10:05→22:31)
[2019-01-13] MEDS: Famotidine 20 MG TAB PO SCH ×2 (10:05→22:31)
[2019-01-13] MEDS: Gabapentin 300 MG CAP PO SCH ×3 (10:05→22:32)
[2019-01-13] MEDS: Hydrochlorothiazide 25 MG TAB PO SCH (10:05)
[2019-01-13] MEDS: Loratadine 10 MG TAB PO SCH (10:06)
[2019-01-13] MEDS: tiZANidine HCl 4 MG TAB PO SCH ×3 (10:06→22:49)
[2019-01-13] MEDS: Losartan 25 MG TAB PO SCH (10:06)
[2019-01-13] MEDS: Senokot S 8.6-50 MG TAB PO SCH ×2 (10:06→22:38)
[2019-01-13] MEDS ORDERED: CEFAZOLIN 2 GM in Premix Bag 1 BAG IVPB SCH (11:00)
--- NOTE | 2019-01-13 14:42 | OP ---
DATE OF PROCEDURE: 01/11/2019 PROCEDURE PERFORMED: Right trochanteric bursa injection under fluoroscopic guidance for diagnosis of greater trochanteric bursitis. DESCRIPTION OF PROCEDURE: The patient was placed on fluoroscopy table and was properly identified. Consent was obtained and allergies were reviewed. After cleansing the skin with Hibiclens, I inserted a 22-gauge spinal needle, under fluoroscopic guidance, directed toward the right greater trochanteric bursa. Once contact with bone was made, injection was performed using bupivacaine 0.25%, 4 mL, in addition to Depo-Medrol 40 mg, total volume of 5 mL. The patient tolerated the procedure well and was monitored for several minutes after the procedure without any adverse reaction. Job ID: [id number]
[2019-01-13] MEDS ORDERED: Dexamethasone 4 MG TAB PO SCH (15:00)
--- NOTE | 2019-01-13 16:28 | PDOC.PN ---
- Subjective Encounter Start Date: 01/13/19 Encounter Start Time: 10:45 Mr. David was seen today for medical management of following lumbar laminectomy. He is being prepared to go down for surgery today to evacuate a post-op hematoma. He says he feels better today, and has less pain. - Objective Resuscitation Status - Order Detail: 01/09/19 21:49 Resuscitation Status Routine Co-Sign Provider: Resuscitation Status: FULL: Full Resuscitation Discussed with: patient Additional comments: Janice is surrogate decision maker [phone] MAR Reviewed: Yes Vital Signs & Weight: Vital Signs (12 hours) Temp Pulse Resp BP Pulse Ox 01/13/19 10:07 96 01/13/19 07:57 98.1 F 64 20 175/93 H 96 01/13/19 04:42 98.1 F 60 14 133/82 95 Weight Weight 277 lb 1.937 oz I&O: 01/12/19 01/13/19 01/14/19 06:59 06:59 06:59 Intake Total 1960 2430 Balance 1960 2430 Result Diagrams: 01/10/19 04:21 01/10/19 04:21 Additional Labs: Accuchecks 01/13/19 01/13/19 01/12/19 14:38 06:06 21:02 POC Glucose 211 H 296 H 247 H Phys Exam - Physical Examination HEENT: PERRLA Respiratory: no wheezing, no rales, no rhonchi, clear to auscultation bilateral Cardiovascular: RRR, no significant murmur, no rub Gastrointestinal: soft, non-tender, no distention, positive bowel sounds Musculoskeletal: no edema, pulses present Neurological: non-focal, moves all 4 limbs Dx/Plan (1) Diabetes mellitus Code(s): E11.9 - TYPE 2 DIABETES MELLITUS WITHOUT COMPLICATIONS Status: Chronic Qualifiers: Diabetes mellitus type: type 2 Diabetes mellitus retirement insulin use: with parts counterman use Diabetes mellitus complication status: without complication Qualified Code(s): E11.9 - Type 2 diabetes mellitus without complications; Z79.4 - terminal operations manager (current) use of insulin (2) Lumbar spondylolysis Code(s): M43.06 - SPONDYLOLYSIS, LUMBAR REGION Status: Chronic (3) HTN (hypertension) Code(s): I10 - ESSENTIAL (PRIMARY) HYPERTENSION Status: Chronic Qualifiers: Hypertension type: essential hypertension Qualified Code(s): I10 - Essential (primary) hypertension (4) Hematoma of lumbar muscle Code(s): S30.0XXA - CONTUSION OF LOWER BACK AND PELVIS, INITIAL ENCOUNTER Status: Acute - Plan * Lumbar spine hematoma- continue IV Decadron, and plan is for hematoma evacuation today * DM- will add a low dose Lantus in the AM ,when he returns from surgery to aid in glycemic control. * HTN- blood pressure is controlled * Continue management as per Neurosurgery
[2019-01-13] MEDS ORDERED: Bupivacaine HCl 0.5%/Epinephrine 1:200,000/PF 30 ml Vial ONE (17:22)
[2019-01-13] MEDS ORDERED: Sodium Chloride 0.9% 10 ML ONE (17:23)
[2019-01-13] MEDS ORDERED: Thrombin 5000 UNITS/5 ML VIAL ONE (17:23)
[2019-01-13] MEDS ORDERED: Fentanyl 100 MCG/2 ML VIAL ONE ×5 (18:28→21:14)
[2019-01-13] MEDS ORDERED: Midazolam HCl 2 mg/2 ml Vial ONE (18:29)
[2019-01-13] MEDS ORDERED: Bisacodyl 10 MG SUPP PR PRN (18:43)
[2019-01-13] MEDS ORDERED: Promethazine HCl 25 MG/ML VIAL IM PRN ×2 (18:43→19:53)
[2019-01-13] MEDS ORDERED: Morphine 2 MG/ML SYRINGE SLOW IVP PRN (18:43)
[2019-01-13] MEDS ORDERED: Ondansetron PF 4 MG/2 ML Vial IVP PRN (18:43)
[2019-01-13] MEDS ORDERED: diphenhydrAMINE 50 MG/ML VIAL IVP PRN (18:43)
[2019-01-13] MEDS ORDERED: diphenhydrAMINE 25 MG CAP PO PRN (18:43)
[2019-01-13] MEDS ORDERED: Milk Of Magnesia 30 ML UDCUP PO PRN (18:43)
[2019-01-13] MEDS ORDERED: Promethazine 25 MG TAB PO PRN (18:43)
[2019-01-13] MEDS ORDERED: Meperidine HCl/PF 25 MG/ML VIAL SLOW IVP PRN (19:53)
[2019-01-13] MEDS ORDERED: Promethazine HCl 25 MG/ML VIAL SLOW IVP PRN (19:53)
[2019-01-13] MEDS ORDERED: HYDROmorphone 2 MG/ML VIAL SLOW IVP PRN (19:53)
[2019-01-13] MEDS ORDERED: HYDROmorphone 2 MG/ML VIAL ONE (21:29)
[2019-01-13] MEDS: CEFAZOLIN 2 GM in Premix Bag 1 BAG IVPB SCH (22:51)
[2019-01-13] MEDS: Insulin Glargine 50 UNITS in Pre-Filled Syringe 1 EACH SC SCH (22:56)
--- NOTE | 2019-01-14 01:18 | OP ---
DATE OF PROCEDURE: 01/13/2019 STAVE GRADER: Roz Alcantar PA-C PREOPERATIVE INDICATION: Prevent neurological deterioration. PREOPERATIVE DIAGNOSES: Postoperative hematoma with right-sided lumbar radiculopathy. POSTOPERATIVE DIAGNOSES: Postoperative hematoma with right-sided lumbar radiculopathy. OPERATIVE PROCEDURES: Reopening the lumbar incision, evacuation of hematoma, wound closure. PREOPERATIVE MEDICATIONS: Ancef 2 g IV. DRAIN NUMBER: One. DRAIN TYPE: 10-Kosovan Estrada. DESCRIPTION OF PROCEDURE: The patient was brought to the operating room. General endotracheal anesthesia was induced. The patient was positioned prone on the operating table with his chest and hips supported by gel-filled chest rolls. The lumbar skin was sterilely prepped and draped. We reopened his lumbar incision with a 10 blade knife. Immediately, in the subcutaneous area, hematoma evacuated under some pressure. We removed the stitches and then opened the fascia. Again, there was a release of pressure with hematoma evacuation upon opening the fascia. We placed self-retaining retractors. We saw some more dense hematoma attached to the dura inferiorly. We removed a couple of millimeters of the remnant of L3 and made sure the right and left-sided nerve roots were well decompressed and there was no hematoma in the canals. There was a small bleeder around the facet joint on the right at L2-L3 and this was coagulated with bipolar cautery. There was no further bloody egress. We irrigated copiously with bacitracin irrigation. We tunneled the drain inferiorly through a separate stab incision. We infused local anesthetic in the paraspinal muscles. We treated the wound with vancomycin powder. We closed the wound in anatomical layers and we applied a sterile dressing. This was a clean case, no contamination. Job ID: [id number]
[2019-01-14] MEDS: Sodium Chloride 0.9% 1,000 ML IV SCH ×2 (02:08→09:32)
[2019-01-14] MEDS: traMADol HCl 50 MG TAB PO PRN (02:30)
[2019-01-14] MEDS ORDERED: Tamsulosin HCl 0.4 MG CAP PO PRN (06:00)
[2019-01-14] MEDS: HumaLOG 300 UNITS/3 ML VIAL SC PRN ×2 (06:20→11:40)
[2019-01-14] MEDS: CEFAZOLIN 2 GM in Premix Bag 1 BAG IVPB SCH ×2 (06:28→13:50)
[2019-01-14] MEDS ORDERED: Insulin Glargine 10 UNITS in Pre-Filled Syringe 1 EACH SC SCH (09:00)
[2019-01-14] MEDS: metFORMIN 500 MG TAB PO SCH (09:28)
[2019-01-14] MEDS: Acetaminophen/Codeine 30-300mg Tablet PO PRN ×2 (09:29→15:53)
[2019-01-14] MEDS: Loratadine 10 MG TAB PO SCH (09:29)
[2019-01-14] MEDS: Gabapentin 300 MG CAP PO SCH ×2 (09:30→15:52)
[2019-01-14] MEDS: tiZANidine HCl 4 MG TAB PO SCH ×2 (09:30→15:52)
[2019-01-14] MEDS: Famotidine 20 MG TAB PO SCH (09:30)
[2019-01-14] MEDS: Atorvastatin Calcium 20 MG TAB PO SCH (09:30)
[2019-01-14] MEDS: Senokot S 8.6-50 MG TAB PO SCH (09:31)
[2019-01-14] MEDS: Dexamethasone 4 MG TAB PO SCH ×2 (09:32→15:53)
[2019-01-14] MEDS: Hydrochlorothiazide 25 MG TAB PO SCH (09:35)
[2019-01-14] MEDS: Losartan 25 MG TAB PO SCH (09:35)
--- NOTE | 2019-01-14 10:09 | PRG ---
DATE OF SERVICE: 01/14/2019 Mr. David is now postop day 1 following revision lumbar decompression and he is doing great. He has minimal pain and has started to tolerate mobility well from Neurosurgery perspective. He is free for discharge, and we will defer to primary team for this purpose. Job ID: [id number]
[2019-01-14 12:35] VITALS: BP 131/81; TEMP 97.5
--- NOTE | 2019-01-14 14:29 | PDOC.PN ---
- Subjective Encounter Start Date: 01/14/19 Encounter Start Time: 14:27 Md. David was seen today in follow-up post lumbar radiculopathy. He does not have any new complaints. - Objective Resuscitation Status - Order Detail: 01/09/19 21:49 Resuscitation Status Routine Co-Sign Provider: Resuscitation Status: FULL: Full Resuscitation Discussed with: patient Additional comments: Janice is surrogate decision maker [phone] MAR Reviewed: Yes Vital Signs & Weight: Vital Signs (12 hours) Temp Pulse Resp BP BP Pulse Ox 01/14/19 10:55 97.5 F L 67 12 131/81 93 L 01/14/19 09:30 66 122/70 01/14/19 07:35 97.9 F 64 12 107/58 L 94 L 01/14/19 03:59 97.6 F 81 20 158/84 H 98 Weight Weight 277 lb 1.937 oz I&O: 01/13/19 01/14/19 01/15/19 06:59 06:59 06:59 Intake Total 2430 680 Output Total 0 5 Balance 2430 0 675 Result Diagrams: 01/10/19 04:21 01/10/19 04:21 Additional Labs: Accuchecks 01/14/19 01/14/19 01/13/19 10:56 05:43 22:37 POC Glucose 211 H 231 H 167 H 01/13/19 14:38 POC Glucose 211 H Phys Exam - Physical Examination HEENT: PERRLA Respiratory: no wheezing, no rales, no rhonchi, clear to auscultation bilateral Cardiovascular: RRR, no significant murmur, no rub Gastrointestinal: soft, non-tender, no distention, positive bowel sounds Musculoskeletal: no edema, pulses present Dx/Plan (1) Diabetes mellitus Code(s): E11.9 - TYPE 2 DIABETES MELLITUS WITHOUT COMPLICATIONS Status: Chronic Qualifiers: Diabetes mellitus type: type 2 Diabetes mellitus assisted insulin use: with buttermaker continuous churn use Diabetes mellitus complication status: without complication Qualified Code(s): E11.9 - Type 2 diabetes mellitus without complications; Z79.4 - [facility] (current) use of insulin (2) Lumbar spondylolysis Code(s): M43.06 - SPONDYLOLYSIS, LUMBAR REGION Status: Chronic (3) HTN (hypertension) Code(s): I10 - ESSENTIAL (PRIMARY) HYPERTENSION Status: Chronic Qualifiers: Hypertension type: essential hypertension Qualified Code(s): I10 - Essential (primary) hypertension (4) Hematoma of lumbar muscle Code(s): S30.0XXA - CONTUSION OF LOWER BACK AND PELVIS, INITIAL ENCOUNTER Status: Acute - Plan * DM- blood glucose is stable * HTN- blood pressure is stable * Post hematoma evacuation. * Stable for discharge home
[2019-01-14] MEDS ORDERED: Dexamethasone 4 MG TAB PO SCH (21:00)
[2019-01-15] MEDS ORDERED: Dexamethasone 4 MG TAB PO SCH (21:00)
[2019-01-16] MEDS ORDERED: Dexamethasone 4 MG TAB PO SCH (09:00)
--- NOTE | 2019-01-16 13:46 | DIS ---
DATE OF ADMISSION: 01/13/2019 DATE OF DISCHARGE: 01/14/2019 PRIMARY CARE PHYSICIAN: Dr. Afia Abbott. DISCHARGE DISPOSITION: Home. PRIMARY DISCHARGE DIAGNOSES: 1. Lumbar spine hematoma. 2. Lumbar radiculopathy, status post recent lumbar laminectomy. 3. Diabetes mellitus type 2. 4. Hypertension. 5. Gastroesophageal reflux disease. 6. Hyperlipidemia. 7. History of deep vein thrombosis. DISCHARGE MEDICATIONS: 1. Tylenol No.3 one tablet q.6 hours p.r.n. pain. 2. Gabapentin 300 mg one p.o. t.i.d. 3. Medrol Dosepak. 4. Ultram 50 mg 1-2 tablets q.6 hours as needed for pain. 5. Protonix 40 mg daily. 6. Metformin 1000 mg twice daily. 7. Cozaar 100 mg daily. 8. Lantus insulin 50 units subcu q.p.m. 9. Hydrochlorothiazide 12.5 mg daily. 10. Glipizide 10 mg daily. 11. Berna 180 mg daily. 12. Lipitor 20 mg daily. PROCEDURES DONE DURING THE ADMISSION: The patient had a CT scan of the lumbar spine showing abnormal hypoattenuation at the laminectomy defect site which could represent postsurgical change. Extensive multilevel neuroforaminal narrowing. The patient had a lower extremity venous Doppler showing no evidence of DVT. CODE STATUS: Full code. ALLERGIES: NO KNOWN DRUG ALLERGIES. HOSPITAL COURSE: Mr. David is a pleasant 58-year-old gentleman, who had a recent lumbar laminectomy. Following surgery, he began developing pain in his lower back radiating down to his legs. The pain got sufficiently severe that he came to the emergency room for evaluation. He was initially placed in observation and then admitted due to a lumbar spine hematoma and Neurosurgery was consulted and he underwent evacuation of the hematoma. He had good results following this and was subsequently able to be discharged home to have close outpatient followup. Job ID: [id number]
== END 2019-01-14 16:00 | disposition home or self-care (01) | DRG 909 ==
LOC: ERS 16:10 → SURG B 20:48 → OBSVTOIN 01-13 09:44
PROVIDERS: ADMIT Internal Medicine; ATTEND Internal Medicine
PROC: 3E0U3BZ Introduction of Anesthetic Agent into Joints, Percutaneous Approach (ICD-10-PCS; 2019-01-11)
PROC: 3E0U33Z Introduction of Anti-inflammatory into Joints, Percutaneous Approach (ICD-10-PCS; 2019-01-11)
PROC: 00C20ZZ Extirpation of Matter from Dura Mater, Open Approach (ICD-10-PCS; principal; 2019-01-13)
PROC: 01NB0ZZ Release Lumbar Nerve, Open Approach (ICD-10-PCS; 2019-01-13)
DX: G97.62 Postprocedural hematoma of a nervous system organ or structure following other procedure (principal); Y83.9 Surgical procedure, unspecified as the cause of abnormal reaction of the patient, or of later complication, without mention of misadventure at the time of the procedure; G89.18 Other acute postprocedural pain; E11.9 Type 2 diabetes mellitus without complications; I10 Essential (primary) hypertension; K21.9 Gastro-esophageal reflux disease without esophagitis; E78.5 Hyperlipidemia, unspecified; E66.9 Obesity, unspecified; M47.26 Other spondylosis with radiculopathy, lumbar region; R33.8 Other retention of urine; M71.551 Other bursitis, not elsewhere classified, right hip; Z86.718 Personal history of other venous thrombosis and embolism; Z90.49 Acquired absence of other specified parts of digestive tract; Z79.84 Long term (current) use of oral hypoglycemic drugs; Z79.899 Other long term (current) drug therapy; Z68.37 Body mass index [BMI] 37.0-37.9, adult
CPT/HCPCS: 36415; 36416; 51798; 72131; 72148; 80053; 85025; 93970; 96374; 96375; J0670; J0690; J1100; J1170; J1825; J2250; J2270; J3010; J3370; J3490; J8540

== ENCOUNTER 2019-05-19 14:24 | Inpatient (IN) | payer BC ==
[2019-05-19] MEDS ORDERED: Insulin Regular 300 UNITS/3 ML VIAL ONE (14:35)
[2019-05-19] MEDS ORDERED: Ondansetron ODT 4 MG TAB PO PRN (17:32)
[2019-05-19] MEDS ORDERED: cloNIDine 0.1 MG TAB PO PRN (17:32)
[2019-05-19] MEDS ORDERED: Ondansetron PF 4 MG/2 ML Vial IVP PRN (17:32)
[2019-05-19] MEDS ORDERED: HYDROcodone/Acetaminophen 5/325 mg Tablet PO PRN (17:32)
[2019-05-19] MEDS ORDERED: Dextrose 50% Abboject 50 ML SYRINGE SLOW IVP PRN (17:32)
[2019-05-19] MEDS ORDERED: hydrALAZINE 20 MG/ML VIAL SLOW IVP PRN (17:32)
[2019-05-19] MEDS ORDERED: Acetaminophen 325 MG TAB PO PRN (17:32)
[2019-05-19] MEDS ORDERED: Dextrose 5% in Water 1,000 ML IV PRN (17:32)
[2019-05-19] MEDS ORDERED: HumaLOG 300 UNITS/3 ML VIAL SC PRN (17:32)
[2019-05-19 17:48] VITALS: BMI 37.6
[2019-05-19] MEDS: HumaLOG 300 UNITS/3 ML VIAL SC PRN (18:36)
[2019-05-19] MEDS: Enoxaparin Sodium 100 MG/ML SYRINGE SC SCH (20:43)
--- NOTE | 2019-05-19 20:55 | HP ---
PRIMARY CARE PHYSICIAN: Dr. Payan in [place]. CHIEF COMPLAINT: "I passed out this morning." HISTORY OF PRESENT ILLNESS: Mr. David is a pleasant 58-year-old gentleman, who has a history of hypertension, diabetes mellitus, he has had a previous pulmonary embolism. He was in his usual state of health until this morning. He says he started feeling really dizzy and he was sitting down and next thing he noticed is he was in the floor. He was concerned because this has happened to him before and when it happened, he had been diagnosed with a pulmonary embolism. He says he denies having any chest pain or shortness of breath prior to this. I asked if he had any leg pain or leg swelling, he says he does remember having just a very slight feeling in his left thigh, but it was not so much that he would even notice it. He says that when he had his previous pulmonary embolism, he had very sharp pain in that same area, but this time the pain was not that severe. Otherwise, the patient has no other complaints. He was evaluated in the ER and found to have a pulmonary embolism and has been transferred here for further evaluation and treatment. REVIEW OF SYSTEMS: All systems were reviewed and are negative except for that mentioned in history of present illness. PAST MEDICAL HISTORY: Significant for diabetes mellitus, hypertension, gastroesophageal reflux disease, history of previous pulmonary embolism, and hyperlipidemia. PAST SURGICAL HISTORY: He has had a cholecystectomy, carpal tunnel surgery as well as a laminectomy. ALLERGIES: NO KNOWN DRUG ALLERGIES. SOCIAL HISTORY: He is . He is a nonsmoker. He occasionally drinks and he is a full code. FAMILY HISTORY: His sister has factor V Leiden. CURRENT MEDICATIONS: Include: 1. Glipizide extended release 5 mg 2 tablets a day. 2. Atorvastatin 20 mg daily. 3. Hydrochlorothiazide 12.5 mg daily. 4. Tylenol 500 mg q.6 as needed. 5. Losartan 100 mg daily. 6. Metformin extended release 500 mg twice a day. 7. Pantoprazole 40 mg daily. 8. Lantus insulin 50 units subcutaneous q.h.s. PHYSICAL EXAMINATION: GENERAL: He is alert and oriented. He appears to be in no acute distress. VITAL SIGNS: Blood pressure initially was 171/102, heart rate 104, respiratory rate of 18, temperature is 98.1, and O2 saturation is 98% on room air. HEENT: He is atraumatic, normocephalic. Pupils are equal, round, and reactive. Extraocular muscles are intact. His sclerae are anicteric. Throat; there is no erythema. No exudates. NECK: No adenopathy. No bruits. LUNGS: Clear to auscultation. There is no wheezing, no rales, no rhonchi. CARDIOVASCULAR: He has a normal S1, S2. There is no S3 or S4. No murmurs, clicks, or rubs. ABDOMEN: Soft, obese, nontender, nondistended. Positive for bowel sounds. There is no rebound. No guarding. No organomegaly. EXTREMITIES: There is no clubbing or cyanosis. No edema. No calf tenderness. NEUROLOGIC: His cranial nerves are intact. Muscle strength is 5/5 in both his upper and lower extremities. SKIN AND INTEGUMENT: There are no skin changes other than some changes of chronic venous stasis in his feet with some mild hyperpigmentation. He does have mild hammertoe deformities, but good dorsalis pedis pulses bilaterally. LABORATORY RESULTS: White blood cell count is 9.5, hemoglobin 14.3, hematocrit is 43.6, and platelet count is 226. Sodium 139, potassium 3.8, chloride is 99, CO2 is 25, BUN of 15, creatinine 1.03, glucose is 231. He had a CT angiogram of the chest, which demonstrated a small pulmonary embolism on the right. ASSESSMENT: 1. This is a pleasant 58-year-old gentleman, who had a syncopal episode due to a pulmonary embolism. He is hemodynamically stable. He will be admitted to telemetry and started on Lovenox. We discussed the risks and benefits of Coumadin versus Xarelto versus Eliquis and he would like to consider one of the newer DOACs (Direct-Acting Oral Anticoagulant). He will need to check his insurance coverage however, but for now that is what he is interested in taking. This is his second episode of a pulmonary embolism and his sister has factor V Leiden, and therefore, he will likely need lifelong anticoagulation. 2. Hypertension. We will continue his usual medications for blood pressure as well as p.r.n. medicines as needed for diabetes mellitus since he recently had the CT angio with contrast. We will be holding the metformin for the next 48 hours and then can restart this. We will continue glipizide as well as a sliding scale insulin. Job ID: [id number]
[2019-05-19] MEDS: Insulin Glargine 50 UNITS in Pre-Filled Syringe SC SCH (22:39)
[2019-05-20 07:46] LABS: #Eosinphils 0.1 thou/uL (0.0-0.7); #Lymphocytes 2.2 thou/uL (1.20-3.40); #Monocytes 0.5 thou/uL (0.11-0.59); #Neutrophils 4.8 thou/uL (1.40-6.50); %Basophils 0.2 % (0.0-1.0); %Eosinophils 1.2 % (0.0-10.0); %Lymphocytes 28.5 % (21.0-51.0); %Monocytes 6.2 % (0.0-10.0); %Neutrophils 63.9 % (42.0-75.0); Hemoglobin 13.7 g/dL (14.0-18.0); Mean Corpuscular HGB CONC 34.6 g/dL (32.0-36.0); Mean Corpuscular Hemoglobin 30.5 pg (27.0-31.0); Mean Corpuscular Volume 88.2 fL (78.0-98.0); Mean Platelet Volume 8.2 fL (7.4-10.4); Platelet Count 208 thou/uL (130-400); RBC Distribution Width 11.4 % (11.5-14.5); White Blood Cell (WBC) Count 7.6 thou/uL (4.8-10.8)
[2019-05-20 08:08] LABS: Anion Gap 14 mmol/L (10-20); BUN (Urea Nitrogen) 11 mg/dL (8.4-25.7); Calc. Creatinine Clearance 163 mL/min (70-130); Calcium 8.9 mg/dL (7.8-10.44); Carbon Dioxide 26 mmol/L (22-29); Chloride 103 mmol/L (98-107); Estimated GFR-MDRD 90; Glucose 149 mg/dL (70-105); Potassium 3.6 mmol/L (3.5-5.1); Sodium 139 mmol/L (136-145)
[2019-05-20] MEDS ORDERED: FLU VACC QS2019-20(6MOS UP)/PF 60 MCG/0.5 ML SYRINGE IM ONE (09:00)
[2019-05-20] MEDS: Enoxaparin Sodium 100 MG/ML SYRINGE SC SCH (09:58)
[2019-05-20] MEDS: Atorvastatin Calcium 20 MG TAB PO SCH (09:58)
[2019-05-20] MEDS: Hydrochlorothiazide 25 MG TAB PO SCH (09:59)
[2019-05-20] MEDS: Losartan 25 MG TAB PO SCH (10:00)
[2019-05-20] MEDS ORDERED: Apixaban 5 MG TAB PO SCH (11:45)
[2019-05-20] MEDS: HumaLOG 300 UNITS/3 ML VIAL SC PRN ×2 (13:23→18:33)
--- NOTE | 2019-05-20 16:33 | ULT ---
EXAM: Bilateral lower extremity venous duplex ultrasound with color and spectral Doppler imaging: HISTORY: Pulmonary embolism COMPARISON: 01/10/2019 FINDINGS: Exam performed from the groin to the ankle including the visualized greater saphenous, common femoral , superficial femoral, profunda femoral, popliteal, trifurcation, and posterior tibial veins. There is phasic flow with normal compressibility and normal augmentation at all examined levels. No evidence for intraluminal thrombus. IMPRESSION: No evidence for deep venous thrombosis.
--- NOTE | 2019-05-20 20:46 | PDOC.HOSPP ---
- Subjective Subjective: Feels well. Feels normal. Has been up a little, not much. No CP, no SOB. - Objective Vital Signs & Weight: Vital Signs (12 hours) Temp Pulse Resp BP Pulse Ox 05/20/19 20:22 97.5 F L 94 20 159/89 H 95 05/20/19 16:00 97.6 F 87 18 127/69 98 Weight Weight 274 lb Result Diagrams: 05/20/19 07:08 05/20/19 07:08 Additional Labs: Accuchecks 05/20/19 05/20/19 05/20/19 16:55 11:34 05:51 POC Glucose 165 H 241 H 160 H 05/19/19 20:41 POC Glucose 240 H Hospitalist ROS - Medication Medications: Active Medications Generic Name Dose Route Start Last Admin Trade Name Freq PRN Reason Stop Dose Admin Atorvastatin Calcium 20 mg 05/20/19 09:00 05/20/19 09:58 Lipitor PO 20 mg QAM NAT Administration Glipizide 10 mg 05/20/19 08:00 05/20/19 08:21 Glucotrol Xl PO 10 mg QAM-WM NAT Administration Hydrochlorothiazide 12.5 mg 05/20/19 09:00 05/20/19 09:59 Hydrochlorothiazide PO 12.5 mg QAM NAT Administration Insulin Glargine 50 units/ 0.5 mls @ 0 mls/hr 05/19/19 21:00 05/19/19 22:39 Miscellaneous Medication SC 0.5 mls HS NAT Administration Insulin Human Lispro 0 units 05/19/19 17:32 05/20/19 18:33 Humalog SC 2 unit .MODERATE SLIDING SC PRN Administration Moderate Correctional Scale Losartan Potassium 100 mg 05/20/19 09:00 05/20/19 10:00 Cozaar PO 100 mg QAM NAT Administration Pantoprazole Sodium 40 mg 05/20/19 09:00 05/20/19 10:00 Protonix PO 40 mg DAILY NAT Administration - Exam General Appearance: NAD, awake alert Heart: RRR, no murmur, no gallops, no rubs, normal peripheral pulses Respiratory: CTAB, no wheezes, no rales, no ronchi, normal chest expansion, no tachypnea, normal percussion Gastrointestinal: soft, non-tender, non-distended, normal bowel sounds, no palpable masses, no hepatomegaly, no splenomegaly, no bruit Extremities: no cyanosis, no clubbing, no edema Skin: normal turgor, no lesions, no rashes Musculoskeletal: normal tone, normal strength, no muscle wasting Psychiatric: normal affect, normal behavior, A&O x 3 Hosp A/P (1) Pulmonary embolus Code(s): I26.99 - OTHER PULMONARY EMBOLISM WITHOUT ACUTE COR PULMONALE Status : Acute (2) Back pain Code(s): M54.9 - DORSALGIA, UNSPECIFIED Status: Acute Qualifiers: (3) GERD (gastroesophageal reflux disease) Code(s): K21.9 - GASTRO-ESOPHAGEAL REFLUX DISEASE WITHOUT ESOPHAGITIS Status: Acute Qualifiers: (4) Obesity (BMI 30-39.9) Code(s): E66.9 - OBESITY, UNSPECIFIED Status: Acute (5) Diabetes mellitus Code(s): E11.9 - TYPE 2 DIABETES MELLITUS WITHOUT COMPLICATIONS Status: Chronic Qualifiers: (6) HTN (hypertension) Code(s): I10 - ESSENTIAL (PRIMARY) HYPERTENSION Status: Chronic Qualifiers: (7) Lumbar spondylolysis Code(s): M43.06 - SPONDYLOLYSIS, LUMBAR REGION Status: Chronic - Plan Second PE. Lifelong anticoag. (sister has Factor V Leiden defect) Again reviewed the pros and cons of Xa v. warfarin. Will start Eliquis today and stop the Lovenox. Await LE doppler and echo. Get up and around if doppler negative. Anticipate discharge soon if studies ok.
[2019-05-20] MEDS: Insulin Glargine 50 UNITS in Pre-Filled Syringe SC SCH (22:43)
[2019-05-21] MEDS: Hydrochlorothiazide 25 MG TAB PO SCH (09:01)
[2019-05-21] MEDS: Losartan 25 MG TAB PO SCH (09:03)
[2019-05-21] MEDS: Atorvastatin Calcium 20 MG TAB PO SCH (09:03)
[2019-05-21 11:18] VITALS: BP 145/79; TEMP 96.7
[2019-05-21] MEDS: HumaLOG 300 UNITS/3 ML VIAL SC PRN (11:19)
--- NOTE | 2019-05-21 13:05 | DIS ---
DATE OF ADMISSION: 05/19/2019 DATE OF DISCHARGE: 05/21/2019 DIAGNOSES AT THE TIME OF DISCHARGE: 1. Acute pulmonary embolism. 2. Back pain. 3. Gastroesophageal reflux disease. 4. Obesity. 5. Diabetes mellitus. 6. Hypertension. 7. Lumbar spondylolysis. HOSPITAL COURSE: The patient is a 58-year-old male with history of hypertension, diabetes mellitus, and previous history of PE, who passed out all of a sudden, he felt really dizzy, so he sat down, and next thing he noticed was he was on the floor. He denied any chest pain or shortness of breath. He denied any leg pain or leg swelling. Apparently, he had previous pulmonary embolism presenting similar way. While in the emergency room, he was found to have PE and was transferred to our hospital for further management. At the time of emergency room visit, his white count was 9.5, hemoglobin 14.3, hematocrit 43.6, platelet count 226. Electrolytes were within normal limits. Creatinine 1.03, glucose 231. CT angiogram of the chest demonstrated small pulmonary embolism on the right. The patient was admitted to the hospital to telemetry floor. Apparently, his sister has Factor V Leiden mutation. Because of this second presentation of his PE, most likely he will need lifelong anticoagulation. The patient had a lower extremity Doppler which came back negative, and echocardiogram done which showed an ejection fraction estimated at 55%, left atrium was [id number] dilated. There was no problem with aortic or mitral valves. Tricuspid valve was structurally normal. The patient was started on Lovenox, then he was switched to apixaban 10 mg twice a day. Clinically, he is doing well. His blood pressure is 113/58, pulse is 83, temperature is 97.8, respirations 16, O2 saturation is 94% on room air. He is seen and examined before his discharge. DISPOSITION: Home. ACTIVITY: Ad libitum. DIET: 2000 calories ADA. MEDICATIONS: At the time of discharge, 1. Insulin glargine 50 units q.p.m. 2. Berna 180 mg once a day. 3. Metformin 1000 mg twice a day. 4. Glipizide 10 mg once a day. 5. Pantoprazole 40 mg once a day. 6. Losartan 100 mg once a day. 7. Hydrochlorothiazide 12.5 mg once a day. 8. Atorvastatin 20 mg once a day. 9. Apixaban 10 mg twice a day for additional 6 days, then he is going to switch to 5 mg twice a day. FOLLOWUP: He will follow up with his primary care physician in 1 week, and the time spent on this discharge is less than 30 minutes. Job ID: [id number]
== END 2019-05-21 12:53 | disposition home or self-care (01) | DRG 176 ==
LOC: ERS 14:24 → 2NO 17:21
PROVIDERS: ADMIT Internal Medicine; ATTEND Internal Medicine
DX: I26.99 Other pulmonary embolism without acute cor pulmonale (principal); K21.9 Gastro-esophageal reflux disease without esophagitis; E66.9 Obesity, unspecified; E11.9 Type 2 diabetes mellitus without complications; I10 Essential (primary) hypertension; M43.06 Spondylolysis, lumbar region; Z23 Encounter for immunization; Z68.36 Body mass index [BMI] 36.0-36.9, adult; Z79.4 Long term (current) use of insulin; Z79.899 Other long term (current) drug therapy
CPT/HCPCS: 36415; 36416; 80048; 85025; 90471; 90686; 90732; 93306; 93970; 99291; G0008; G0009; J1650; J1815